=== PATIENT | female | born 1955 | race Native Hawaiian/Other Pacific Islander ===

== ENCOUNTER 2019-03-06 10:48 | Outpatient (CLI) | payer OTHER ==
[2019-03-06 11:12] LABS: POTASSIUM 4.3 mmol/L (3.6-5.2)
== END 2019-03-06 23:10 | disposition home or self-care (01) ==
LOC: LABW 10:48
PROVIDERS: Internal Medicine Cardiovascular Disease
DX: Z79.899 Other long term (current) drug therapy (principal); R06.02 Shortness of breath
CPT/HCPCS: 36415; 80048; 83880

== ENCOUNTER 2020-05-20 13:15 | Emergency (ER) | payer OTHER ==
[~2020-05-20] VITALS: Ht 160 cm; Wt 91.2 kg
[2020-05-20 13:28] VITALS: TEMP 98
[2020-05-20 14:42] LABS: PLATELET COUNT 448 K/uL (152-353)
[2020-05-20 14:51] LABS: POTASSIUM 3.7 mmol/L (3.6-5.2)
[2020-05-20 15:49] VITALS: BP 103/56
== END 2020-05-20 15:49 | disposition home or self-care (01) ==
LOC: ED 13:15
PROVIDERS: Emergency Medicine
DX: R53.1 Weakness (principal); R53.83 Other fatigue; Z20.828 Contact with and (suspected) exposure to other viral communicable diseases
CPT/HCPCS: 80053; 85027; 87502; 87635; 87651; 93005; 99283; U0003